=== PATIENT | male | born 1980 | race Caucasian/White ===

== ENCOUNTER → 2020-01-13 15:57 | Outpatient (CLI) | payer OTHER, SELFPAY ==
--- NOTE | ~2020-01-13 | US_ITS ---
EXAMINATION: US retroperitoneal comp DATE: 01/14/2020 16:48 INDICATION: Renal cyst TECHNIQUE: Multiple grayscale and Doppler ultrasound images of the kidneys were obtained. COMPARISON: CT, 03/25/2019 FINDINGS: The right kidney measures 12.4 x 5.3 x 5.6 cm. The 3 mm lesion described on CT is not ident ified. The left kidney measures 12.6 x 6.4 x 5.6 cm. The 6 mm lesion described on CT is not identifie d. The kidneys demonstrate normal parenchymal echogenicity. There is no hydronephrosis. The bladder i s normal. IMPRESSION: 1. Normal kidneys without hydronephrosis. Cystic lesions described on CT not identified. Reviewed, dictated and finalized at location A. IMPRESSION: 1. Normal kidneys without hydronephrosis. Cystic lesions described on CT not i dentified.
== END ==
PROVIDERS: PCP Physician Assistant
DX: N28.1 Cyst of kidney, acquired (principal)
CPT/HCPCS: 76770

== ENCOUNTER → 2021-02-01 10:08 | Outpatient (CLI) | payer OTHER, SELFPAY ==
--- NOTE | ~2021-02-01 | XR_ITS ---
EXAMINATION: XR lumbar spine 2-3V DATE: 02/01/2021 10:29 INDICATION: Acute low back pain. TECHNIQUE: 3 views of lumbar spine were obtained. COMPARISON: None. FINDINGS: Bone alignment is normal. Vertebral body heights and intervertebral disc heights are normal . The facet joints are unremarkable. IMPRESSION: 1. Normal lumbar spine. Reviewed, dictated and finalized at location A. IMPRESSION: 1. Normal lumbar spine.
== END ==
PROVIDERS: PCP Physician Assistant; Visit Provider Physician Assistant
DX: M54.5 Low back pain (principal); N28.1 Cyst of kidney, acquired
CPT/HCPCS: 72100

== ENCOUNTER → 2021-06-17 13:38 | Outpatient (CLI) | payer OTHER, SELFPAY ==
--- NOTE | ~2021-06-17 | US_ITS ---
EXAMINATION: US retroperitoneal comp EXAM DATE: 06/17/2021 14:07 INDICATION: Renal cyst TECHNIQUE: Multiple grayscale and Doppler images of the kidneys were obtained (by a technologist who performed the scan) and subsequently reviewed. There is no prior study for comparison. FINDINGS: Right kidney: There is normal contour and echogenicity. It measures 12.6 x 5.7 x 6.8 centimeters. T here are no focal renal lesions identified. There is no hydronephrosis. Left kidney: There is normal contour and echogenicity. It measures 12.1 x 5.3 x 5.2 centimeters. Th ere are no focal renal lesions identified. There is no hydronephrosis. Bladder unremarkable. IMPRESSION: Sonographically unremarkable kidneys. Reviewed, dictated and finalized at location A. ET [employer]AT [employer]
== END ==
PROVIDERS: PCP Physician Assistant
DX: N28.1 Cyst of kidney, acquired (principal)
CPT/HCPCS: 76770

== ENCOUNTER → 2021-06-17 13:40 | Outpatient (CLI) | payer OTHER, SELFPAY ==
--- NOTE | ~2021-06-17 | MR_ITS ---
EXAMINATION: MR lumbar spine wo con DATE: 06/17/2021 14:33 INDICATION: Low back pain. Lumbar radiculopathy. TECHNIQUE: Magnetic resonance imaging (MRI) of the lumbar spine was performed without intravenous con trast. Sequences included sagittal T2-weighted FSE, sagittal T2-weighted FS FSE, sagittal T1-weighted FSE, and axial T2-weighted FSE. COMPARISON: Lumbar spine radiographs 02/01/2021 FINDINGS: Bone alignment is normal. There is mild chronic anterior wedging of L1 vertebral body, like ly physiologic. Intervertebral disc heights are normal. The distal spinal cord signal intensity is no rmal. The conus medullaris is at L1-L2. The following disc levels are specifically discussed: L1-L2: The disc does not extend beyond the endplate margin. There is mild bilateral facet joint osteo arthritis. There is no neural foraminal stenosis. There is no central canal stenosis. L2-L3: The disc does not extend beyond the endplate margin. There is mild bilateral facet joint osteo arthritis. There is no neural foraminal stenosis. There is no central canal stenosis. L3-L4: The disc does not extend beyond the endplate margin. There is mild bilateral facet joint osteo arthritis. There is no neural foraminal stenosis. There is no central canal stenosis. L4-L5: The disc does not extend beyond the endplate margin. There is mild bilateral facet joint osteo arthritis. There is no neural foraminal stenosis. There is no central canal stenosis. L5-S1: There is a left central extrusion. There is mild bilateral facet joint osteoarthritis. There i s no neural foraminal stenosis. There is mild central canal stenosis. IMPRESSION: 1. Mild lumbar spondylosis. Reviewed, dictated and finalized at location A. E 1 TUTOR IMPRESSION: 1. Mild lumbar spondylosis.
== END ==
PROVIDERS: PCP Physician Assistant; Visit Provider Physician Assistant
DX: M47.27 Other spondylosis with radiculopathy, lumbosacral region (principal); M48.07 Spinal stenosis, lumbosacral region
CPT/HCPCS: 72148